=== PATIENT | female | born 1955 | race Caucasian/White ===

== ENCOUNTER 2017-11-03 16:35 | Emergency (ER) | payer BC ==
[~2017-11-03] VITALS: Ht 165.1 cm; Wt 75.4 kg
[2017-11-03 16:47] VITALS: TEMP 36.6; Ht 165.1 cm; Wt 75.4 kg
[2017-11-03] MEDS ORDERED: KETOROLAC TROMETHAMINE 30 MG/ML VIAL IV STA (16:59)
[2017-11-03] MEDS ORDERED: SODIUM CHLORIDE 0.9% 1000ML 1,000 ML IV STA (16:59)
[2017-11-03] MEDS ORDERED: OMEG10002 PO (17:15)
[2017-11-03] MEDS ORDERED: FLUT0.15 (17:15)
[2017-11-03] MEDS ORDERED: GLUC10007 PO (17:15)
[2017-11-03] MEDS ORDERED: MISCCAP80 PO (17:15)
[2017-11-03] MEDS ORDERED: DOCU-94 PO (17:15)
[2017-11-03] MEDS ORDERED: TRAM-10 PO (17:15)
[2017-11-03] MEDS ORDERED: BENZ100C84 PO (17:15)
[2017-11-03] MEDS ORDERED: AZEL0.1S2 (17:15)
[2017-11-03] MEDS ORDERED: B-COTAB18 PO (17:15)
[2017-11-03] MEDS ORDERED: MULT-610 PO (17:15)
[2017-11-03] MEDS ORDERED: DIPH1TAB87 PO (17:15)
[2017-11-03] MEDS ORDERED: CHOL1000 PO (17:15)
[2017-11-03] MEDS ORDERED: ASPI81TA28 PO (17:15)
[2017-11-03 17:28] LABS: BASO % 0.3 %; BASO ABS # 0.01 K/uL (0-0.2); EOS % 0.3 %; EOS ABS # 0.01 K/uL (0-0.5); HEMATOCRIT 44.5 % (37-47); LYMPH % 41.8 %; LYMPH ABS # 1.22 K/uL (1.2-3.4); MEAN CELL VOLUME 93.5 fL (80-100); MEAN CORPUSCULAR HEMOGLOBIN 31.5 pg (25-34); MEAN CORPUSCULAR HGB CONC 33.7 g/dl (32-36); MONO % 13.4 %; MONO ABS # 0.39 K/uL (0.11-0.59); NEUT % 44.2 %; NEUT ABS # 1.29 K/uL (1.4-6.5); PLATELET COUNT 214 K/uL (130-400); RED CELL DISTRIBUTION WIDTH CV 13.2 % (11.5-14.5); RED CELL DISTRIBUTION WIDTH SD 45.4 fL (36.4-46.3); WHITE BLOOD COUNT 2.92 K/uL (4.8-10.8)
[2017-11-03 17:31] LABS: INFLUENZA B ANTIGEN Neg for Influ B (NEG)
--- NOTE | 2017-11-03 17:39 | DIAGNOSTIC IMAGING REPORT ---
SINGLE VIEW CHEST CLINICAL HISTORY: Cough. FINDINGS: An AP, portable, upright chest radiograph is obtained. No prior studies are available for comparison at the time of dictation. The examination is degraded by portable technique and patient rotation. The cardiomediastinal silhouette is unremarkable. There are airspace opacities at the left lung base. The right lung appears clear. No large pleural effusion or pneumothorax is seen. The skeletal structures are osteopenic. The bony thorax is grossly intact. IMPRESSION: Airspace opacities are present at the left lung base. This likely represents atelectasis. Correlate clinically for evidence of developing pneumonia. Electronically signed by: Hebert Turner M.D. 11/03/2017 5:38 PM Dictated Date/Time: 11/03/2017 5:37 PM
[2017-11-03 17:46] LABS: ALBUMIN 3.3 gm/dl (3.4-5.0); ALT/SGPT 27 U/L (12-78); AST/SGOT 23 U/L (15-37); BLOOD UREA NITROGEN 23 mg/dl (7-18); CALCIUM 8.8 mg/dl (8.5-10.1); CARBON DIOXIDE 23 mmol/L (21-32); CREATININE 0.88 mg/dl (0.60-1.20); GLUCOSE 100 mg/dl (70-99); LIPASE 152 U/L (73-393); POTASSIUM 3.5 mmol/L (3.5-5.1); SODIUM 138 mmol/L (136-145)
[2017-11-03 17:49] LABS: ALKALINE PHOSPHATASE 77 U/L (45-117); TOTAL PROTEIN 7.7 gm/dl (6.4-8.2)
[2017-11-03] MEDS ORDERED: OSELTAMIVIR PHOSPHATE 75 MG CAP PO STA (18:35)
[2017-11-03] MEDS ORDERED: OSEL75CA12 PO (18:38)
[2017-11-03 18:52] VITALS: BP 131/80; PULSE 71; O2SAT 96
--- NOTE | 2017-11-03 21:33 | EMERGENCY ROOM VISIT NOTE ---
History Report prepared by Yvonne: Magdiel Castro Under the Supervision of: Dr. Matt Taylor D.O. First contact with patient: 16:50 Chief Complaint: FLU LIKE SX Stated Complaint: FLU LIKE SYMPTOMS History of Present Illness The patient is a 61 year old female who presents to the Emergency Room with complaints of that a persistent cough that started five days ago. The patient states that she has been experiencing a cough starting five days ago, which she states is intermittently productive with yellow sputum. She reports that she has also been sneezing since five days ago. The patient states that she has been experiencing chills with diaphoresis over the last couple of days. She reports that whenever she stands up, she notices that her lower back becomes painful. The patient reports that she has been short of breath upon exertion and walking. The patient states that she has also been experiencing a "fullness " in her ears. She states that she ate some food today and experienced mild abdominal pain. The patient denies headache, sorethroat change in vision, fevers , chest pain, nausea, vomiting, diarrhea, pain with urination, and melena. She denies a history of COPD, asthma, and other lung problems. The patient reports that her shots are up to date. Source of History: patient Onset: five days ago Position: other (global) Quality: other (productive) Timing: constant Associated Symptoms: + chills, + diaphoresis, + SOB, + abdominal pain, No fevers, No headache, No chest pain, No nausea, No vomiting, No melena, No diarrhea, No urinary symptoms Review of Systems See HPI for pertinent positives & negatives. A total of 10 systems reviewed and were otherwise negative. Past Medical & Surgical Medical Problems: (1) No known problems Family History Patient reports no known family medical history. Social History Smoking Status: Never Smoker Housing Status: lives with family Occupation Status: retired Current/Historical Medications Scheduled Aspirin (Aspirin Ec), 81 MG PO DAILY Azelastine HCl (Azelastine Hydrochloride), 2 SPRAYS NA BID B-Complex Vitamins (Vitamin B Complex), 1 TAB PO DAILY Cholecalciferol (Vitamin D3), 1,000 INTER.UNIT PO DAILY Diphenhydramine Hcl (Benadryl Allergy), 25 MG PO HS Docusate Sodium (Colace), 1 CAP PO DAILY Fluticasone Propionate (Nasal) (Flonase Allergy Relief), 2 SPRAYS NA DAILY Glucosamine Sulfate (Glucosamine), 1,000 MG PO TID Multiple Vitamins W/ Minerals (Centrum Adults), 1 TAB PO DAILY [place]-3 Fatty Acids (Fish Oil), 1,000 MG PO DAILY Oseltamivir (Tamiflu), 75 MG PO BID Probiotic Product (Probiotic), 1 CAP PO DAILY Scheduled PRN Benzonatate (Tessalon Perles), 100 MG PO TID PRN for Cough Tramadol (Ultram), 50 MG PO Q6 PRN for Pain Allergies Coded Allergies: No Known Allergies (Unverified , 11/03/17) Physical Exam Vital Signs Date Time Temp Pulse Resp B/P (MAP) Pulse Ox O2 Delivery O2 Flow Rate FiO2 11/03/17 18:52 71 131/80 96 11/03/17 18:07 70 107/74 95 Room Air 11/03/17 16:47 36.6 92 20 108/80 95 Room Air Physical Exam GENERAL: Sitting up in bed, disheveled, no distress, non-toxic EYE EXAM: normal conjunctiva. PERRL and EOM's grossly intact. EARS: TMs clear bilaterally. OROPHARYNX: no exudate, no erythema, lips, buccal mucosa, and tongue normal and mucous membranes are moist NECK: supple, no nuchal rigidity, no adenopathy, non-tender LUNGS: Clear to auscultation. Normal chest wall mechanics HEART: no murmurs, S1 normal and S2 normal ABDOMEN: abdomen soft, non-tender, normo-active bowel sounds, no masses, no rebound or guarding. BACK: Back is symmetrical on inspection and there is no deformity, no midline tenderness, no CVA tenderness. SKIN: no rashes and no bruising UPPER EXTREMITIES: upper extremities are grossly normal. LOWER EXTREMITIES: No pitting edema. Calves are equal bilaterally NEURO EXAM: Normal sensorium, cranial nerves II-XII grossly intact, normal speech, no gross weakness of arms, no gross weakness of legs. Gross sensation intact. Medical Decision & Procedures ER Provider Diagnostic Interpretation: Radiology results as stated below per my review and the radiologist's interpretation: SINGLE VIEW CHEST CLINICAL HISTORY: Cough. FINDINGS: An AP, portable, upright chest radiograph is obtained. No prior studies are available for comparison at the time of dictation. The examination is degraded by portable technique and patient rotation. The cardiomediastinal silhouette is unremarkable. There are airspace opacities at the left lung base. The right lung appears clear. No large pleural effusion or pneumothorax is seen. The skeletal structures are osteopenic. The bony thorax is grossly intact. IMPRESSION: Airspace opacities are present at the left lung base. This likely represents atelectasis. Correlate clinically for evidence of developing pneumonia. Electronically signed by: Hebert Turner M.D. 11/03/2017 5:38 PM Dictated Date/Time: 11/03/2017 5:37 PM Laboratory Results 11/03/17 17:20 Red Blood Count 4.76, Mean Corpuscular Volume 93.5, Mean Corpuscular Hemoglobin 31.5, Mean Corpuscular Hemoglobin Concent 33.7, Mean Platelet Volume 9.0, Neutrophils (%) (Auto) 44.2, Lymphocytes (%) (Auto) 41.8, Monocytes (%) (Auto) 13.4, Eosinophils (%) (Auto) 0.3, Basophils (%) (Auto) 0.3, Neutrophils # (Auto ) 1.29, Lymphocytes # (Auto) 1.22, Monocytes # (Auto) 0.39, Eosinophils # (Auto ) 0.01, Basophils # (Auto) 0.01 11/03/17 17:20 Test 11/03/17 17:05 11/03/17 17:20 Influenza Type A Antigen POS for Influ A (NEG) Influenza Type B Antigen Neg for Influ B (NEG) White Blood Count 2.92 K/uL (4.8-10.8) Red Blood Count 4.76 M/uL (4.2-5.4) Hemoglobin 15.0 g/dL (12.0-16.0) Hematocrit 44.5 % (37-47) Mean Corpuscular Volume 93.5 fL (80-100) Mean Corpuscular Hemoglobin 31.5 pg (25-34) Mean Corpuscular Hemoglobin Concent 33.7 g/dl (32-36) Platelet Count 214 K/uL (130-400) Mean Platelet Volume 9.0 fL (7.4-10.4) Neutrophils (%) (Auto) 44.2 % Lymphocytes (%) (Auto) 41.8 % Monocytes (%) (Auto) 13.4 % Eosinophils (%) (Auto) 0.3 % Basophils (%) (Auto) 0.3 % Neutrophils # (Auto) 1.29 K/uL (1.4-6.5) Lymphocytes # (Auto) 1.22 K/uL (1.2-3.4) Monocytes # (Auto) 0.39 K/uL (0.11-0.59) Eosinophils # (Auto) 0.01 K/uL (0-0.5) Basophils # (Auto) 0.01 K/uL (0-0.2) RDW Standard Deviation 45.4 fL (36.4-46.3) RDW Coefficient of Variation 13.2 % (11.5-14.5) Immature Granulocyte % (Auto) 0.0 % Immature Granulocyte # (Auto) 0.00 K/uL (0.00-0.02) Anion Gap 7.0 mmol/L (3-11) Est Creatinine Clear Calc Drug Dose 66.5 ml/min Estimated GFR () 81.0 Estimated GFR (Non- 69.9 BUN/Creatinine Ratio 25.8 (10-20) Calcium Level 8.8 mg/dl (8.5-10.1) Total Bilirubin 0.4 mg/dl (0.2-1) Direct Bilirubin < 0.1 mg/dl (0-0.2) Aspartate Amino Transf (AST/SGOT) 23 U/L (15-37) Alanine Aminotransferase (ALT/SGPT) 27 U/L (12-78) Alkaline Phosphatase 77 U/L (45-117) Total Protein 7.7 gm/dl (6.4-8.2) Albumin 3.3 gm/dl (3.4-5.0) Lipase 152 U/L (73-393) Laboratory results per my review. Medications Administered Medications (Trade) Dose Ordered Sig/Ani Route Start Time Stop Time Status Last Admin Dose Admin Sodium Chloride 1,000 ml @ 999 mls/hr Q1H1M STAT IV 11/03/17 16:59 11/03/17 17:59 DC 11/03/17 17:28 999 MLS/HR Ketorolac Tromethamine (Toradol Inj) 10 mg NOW STAT IV 11/03/17 16:59 11/03/17 17:01 DC 11/03/17 17:29 10 MG Oseltamivir Phosphate (Tamiflu Cap) 75 mg NOW STAT PO 11/03/17 18:35 11/03/17 18:36 DC 11/03/17 18:43 75 MG ECG Indication: SOB/dyspnea Rate (beats per minute): 66 Rhythm: normal sinus Findings: no ectopy, other (Normal axis) ED Course ED COURSE: Vital signs were reviewed and showed normal The patients medical record was reviewed The above diagnostic studies were performed and reviewed. ED treatments and interventions as stated above. 165: The patient was evaluated in room B10. A complete history and physical examination was performed. 165: Ordered Toradol Injection 10 mg IV, Sodium Chloride 1000 ml @ 999 mls/hr IV. 1828: Upon reevaluation, the patient is feeling better. I discussed the findings and the treatment plan with the patient. She verbalizes agreement and understanding. The patient was discharged home. 1834: Ordered Tamiflu Cap 75 mg PO. Medical Decision Differential diagnosis: Etiologies such as viral syndrome, otitis, pharyngitis, pneumonia, influenza, meningitis, urinary tract infection, sepsis, bacteremia, as well as others were entertained. Patient is a 61-year-old female who presents to ER for upper respiratory symptoms associated with a cough, chills, congestion and earaches. Shots are up -to-date. CBC shows a mild leukopenia consistent with the influence a viral suppression. BMP all LFTs, bilirubin and lipase is unremarkable. Chest x-ray shows some atelectasis but no focal infiltrate. Based on her symptoms she was discharged with Tamiflu instructed to follow up with her PCP as an outpatient. I stressed importance of her remaining hydrated. Patient was otherwise well- appearing without any significant comorbidities. Discussed with Pt concerning signs and symptoms to watch out for. Pt was instructed to follow up with their PCP and discussed with the patient their option to return to the ED at anytime for persistent or worsening symptoms. The appropriate anticipatory guidance and out-patient management, including indications for return to the emergency department, were explained at length to the patient and understood. Medication Reconcilliation Current Medication List: was personally reviewed by me Blood Pressure Screening Patient's blood pressure: Normal blood pressure Impression Primary Impression: Influenza A Scribe Attestation The scribe's documentation has been prepared under my direction and personally reviewed by me in its entirety. I confirm that the note above accurately reflects all work, treatment, procedures, and medical decision making performed by me. Departure Information Dispostion Home / Self-Care Prescriptions Oseltamivir (Tamiflu) 75 Mg Cap 75 MG PO BID, #10 CAP Prov: Matt Taylor, DO 11/03/17 Referrals Jorge Fenton M.D. (MEDICAL) (PCP) Forms HOME CARE DOCUMENTATION FORM, IMPORTANT VISIT INFORMATION Patient Instructions My [facility], Oseltamivir capsules Additional Instructions Please follow up with your primary care doctor with in the next 24 hours. Any worsening of your symptoms, please return to the ED immediately. This includes any fevers greater than 100.4, worsening pain, chest pain, shortness breath, persistent nausea, vomiting, unable to eat or drink, or any other concerning signs or symptoms from your standpoint. Please take Tylenol or Motrin as needed for fevers and muscle cramps. Please take Tamiflu as prescribed.
== END 2017-11-03 18:53 | disposition home or self-care (01) ==
LOC: C.EDB 16:36
DX: J10.1 Influenza due to other identified influenza virus with other respiratory manifestations (principal); Z79.82 Long term (current) use of aspirin